=== PATIENT | female | born 1970 | race Caucasian/White ===

== ENCOUNTER 2022-01-15 08:59 | Emergency (ER) | payer BC ==
[~2022-01-15] VITALS: Ht 165.1 cm; Wt 64.9 kg
[2022-01-15 09:09] VITALS: BP 154/85
[2022-01-15] MEDS ORDERED: diazePAM 5 MG TAB PO ONE (09:40)
[2022-01-15] MEDS ORDERED: KETOROLAC 30 MG/ML VIAL IM ONE (09:40)
[2022-01-15] MEDS ORDERED: DIAZ5TAB6 PO (10:28)
[2022-01-15] MEDS ORDERED: NAPR-54 PO (10:28)
[2022-01-15] MEDS ORDERED: ALBU0.0912 IH (10:28)
[2022-01-15 10:49] VITALS: BP 123/70
--- NOTE | 2022-01-15 10:50 | NUR ---
Patient discharged with v/s stable. Written and verbal after care instructions given and explained. Patient alert, oriented and verbalized understanding of instructions. Ambulatory with steady gait. All questions addressed prior to discharge. ID band removed. Patient advised to follow up with PMD. Rx of Valium, Naprosyn, Albuterol given. Patient educated on indication of medication including possible reaction and side effects. Opportunity to ask questions provided and answered.
--- NOTE | 2022-01-15 10:54 | NUR ---
Patient discharged with v/s stable. Written and verbal after care instructions given and explained. Patient alert, oriented and verbalized understanding of instructions. Ambulatory with steady gait. All questions addressed prior to discharge. ID band removed. Patient advised to follow up with PMD. Rx of PREDNISONE,VENTOLIN, ZITHROMAX given. Patient educated on indication of medication including possible reaction and side effects. Opportunity to ask questions provided and answered.
== END 2022-01-15 10:49 | disposition home or self-care (01) ==
LOC: MED 08:59
DX: R06.00 Dyspnea, unspecified (principal); M62.830 Muscle spasm of back; F17.210 Nicotine dependence, cigarettes, uncomplicated; K51.90 Ulcerative colitis, unspecified, without complications
CPT/HCPCS: 71045; 93005; 96372; 99283; J1885